=== PATIENT | male | born 1965 | race Caucasian/White ===

== ENCOUNTER → 2024-09-09 11:24 | Outpatient (REF) | payer OTHER, SELFPAY | LOC: HWRCS 11:24 | PROVIDERS: ATTENDING PHYSICIAN Student in an Organized Health Care Education/Training Program; FAMILY PHYSICIAN Family Medicine | DX: I25.10 Atherosclerotic heart disease of native coronary artery without angina pectoris (principal) | CPT/HCPCS: 78452; 93017; A9500 ==

== ENCOUNTER → 2024-09-16 15:36 | Outpatient (REF) | payer OTHER, SELFPAY | LOC: HWRCS 15:36 | PROVIDERS: ATTENDING PHYSICIAN Student in an Organized Health Care Education/Training Program; FAMILY PHYSICIAN Family Medicine | DX: I25.10 Atherosclerotic heart disease of native coronary artery without angina pectoris (principal) | CPT/HCPCS: 93306 ==

== ENCOUNTER 2024-09-23 07:55 | Day surgery (SDC) | payer OTHER, SELFPAY ==
[2024-09-16 06:41] VITALS: BMI 38.1
[2024-09-16 07:06] LABS: % Basophils 0.3 % (0-2); % Eosinophils 1.9 % (0-6); % Immature Granulocytes 0.3 % (0-0.5); % Lymphocytes 29.7 % (20.5-51.1); % Monocytes 10.7 % (1.7-9.3); % Neutrophils 57.1 % (42.2-75.2); Absolute Eosinophils 0.1 10^3/uL (0-0.7); Absolute Lymphocytes 1.9 10^3/uL (1.2-3.4); Absolute Monocytes 0.7 10^3/uL (0.1-0.6); Absolute Neutrophils 3.6 10^3/uL (1.4-6.5); Hematocrit 45.7 % (39.0-52.0); Hemoglobin 15.2 g/dL (13.0-18.0); Mean Corp Hgb Conc. 33.3 g/dL (33.0-37.0); Mean Corpuscular Hgb 29.5 pg (27.0-31.0); Mean Corpuscular Volume 88.6 fL (80.0-94.0); Mean Platelet Volume 11.7 fL (7.4-10.4); Nucleated Red Blood Cells % 0 % (-); Platelet Count 196 10^3/uL (130-400); Red Blood Cell Count 5.16 10^6/uL (4.70-6.10); Red Cell Dist. Width 13.2 % (11.5-14.5); White Blood Cell Count 6.4 10^3/uL (4.8-10.8)
[2024-09-16 07:34] LABS: ALT (SGPT) 52 U/L (0-50); AST (SGOT) 31 U/L (17-59); Albumin 4.8 g/dl (3.5-5.0); Alkaline Phosphatase 57 U/L (38-126); Blood Urea Nitrogen 17 mg/dl (9-20); Calcium 9.9 mg/dl (8.4-10.2); Carbon Dioxide 29 mmol/L (22-30); Chloride 102 mmol/L (98-107); Estimated Creatinine Clearance > 125 ml/min; Glucose 104 mg/dl (70-99); Potassium 4.6 mmol/L (3.5-5.1); Sodium 141 mmol/L (135-145); Total Bilirubin 1.2 mg/dl (0.2-1.3); eGFR > 60.00
[2024-09-23] VITALS (11 sets, daily range): BP systolic 116–146; BP diastolic 84–101; BMI 38.0
[2024-09-23] MEDS: NSS 361 ML IV (08:36)
--- NOTE | 2024-09-23 10:09 | ITS.CL.PN ---
[employer] - Procedure Note
Procedure
Procedure Note:
CARDIAC CATHETERIZATION REPORT
Date of Procedure: 09/23/2024
Referring: Dr. Gilbert Garcias MD, PhD
Indication: worsening dyspnea on exertion
PROCEDURE(S)
1. right heart catheterization
2. left heart catheterization
3. coronary angiography
ACCESS
1. 6F right radial artery (closure: radial band)
2. 5F right antecubital vein (closure: manual hemostasis)
CATHETERS
1. 5F Edge[place]-Seng
2. 6F JR4
3. 6F JL3.5
MODERATE SEDATION: 37 minutes of moderate sedation was utilized. An independent medical records supervisor was present to assist with and help manage the patient's level of consciousness and physiologic status.
ULTRASOUND GUIDED VASCULAR ACCESS (right brachial vein): Ultrasound was utilized for vascular access. The vessel was visualized under ultrasound and noted to be patent. An image of the vessel was stored permanently in the patient's medical record.
Under direct ultrasound guidance, vascular access was obtained using a modified Seldinger technique and a 5 Stateless sheath was placed.
ULTRASOUND GUIDED VASCULAR ACCESS (right radial artery): Ultrasound was utilized for vascular access. The vessel was visualized under ultrasound and noted to be patent. An image of the vessel was stored permanently in the patient's medical record.
Under direct ultrasound guidance, vascular access was obtained using a modified Seldinger technique and a 6 Stateless sheath was placed.
HEMODYNAMIC DATA
LV 137/18 (EDP 30) mmHg
AO 124/80 (mean 97) mmHg
RA 17 mmHg
RV 42/12 (EDP 19) mmHg
PA 42/20 (mean 29) mmHg
PCWP 23 mmHg
SaO2 87%
SvO2 68.3%
Hb 14.4 g/dL
CO/CI 8.0/3.4 L/min/m2
SVR 796 dsc*-5
PVR 0.8 Wood units
CORONARY ANGIOGRAPHY
Dominance: Right
LM: large with mild disease
LAD: large vessel giving rise to a large D1 and small D2. There are widely patent overlapping stents in the mid-LAD. There is mild 30-40% stenosis just proximal to the proximal stent edge.
LCx: large vessel giving rise to a small OM1, large OM2, and small OM3. There is 40% ostial LCx stenosis and otherwise mild disease.
RCA: large vessel giving rise to a large RPDA and small RPL branch. There is a widely patent stent in the mid-RCA. There is a 40-50% stenosis in the mid RPDA and otherwise mild disease.
RADIATION: dose 417 mGy; DAP 31.5 Gy*cm2; fluoroscopy time 3.7 min
CONCLUSIONS
1. elevated biventricular filling pressures, mild post-capillary pulmonary hypertension, normal cardiac output, and no aortic stenosis
2. coronary artery disease as described with widely patent stents and non-obstructive residual disease
RECOMMENDATIONS
1. expectant management after cardiac catheterization via right radial artery and right brachial vein approach
2. start lasix 20 mg qD with labs in 1 week
3. outpatient titration of GDMT for HFpEF including SGLT2i/spironolactone
Copy to: Satnam Reyes DO (PCP)
Signed: Gilbert Lew MD, PhD
== END 2024-09-23 12:45 | disposition home or self-care (01) ==
LOC: CATH 07:55
PROVIDERS: ATTENDING PHYSICIAN Student in an Organized Health Care Education/Training Program; FAMILY PHYSICIAN Family Medicine
DX: I27.20 Pulmonary hypertension, unspecified (principal); R06.09 Other forms of dyspnea; I50.32 Chronic diastolic (congestive) heart failure; I25.10 Atherosclerotic heart disease of native coronary artery without angina pectoris; Z79.82 Long term (current) use of aspirin; Z79.02 Long term (current) use of antithrombotics/antiplatelets; Z79.899 Other long term (current) drug therapy
CPT/HCPCS: 99152; 99153; 36415; 76937; 80053; 85025; 93005; 93460; C1894; Q9967